=== PATIENT | male | born 1975 | race Caucasian/White ===

== ENCOUNTER → 2016-08-01 | Outpatient (CLI) | payer OTHER ==
[2016-08-01 13:09] LABS: Appearance,Urine Clear (Clear); Bilirubin,Urine Negative (Negative); Glucose,Urine (UA) Negative (Negative); Ketones,Urine Negative (Negative); Leukocyte Esterase,Urine Negative (Negative); Nitrite,Urine Negative (Negative); PH, Urine 5.5 (5.0-8.0); Protein,Urine Trace (Negative); Specific Gravity,Urine 1.027 (1.001-1.035); UA Billing (MACRO vs. MICRO) CHEM; Urobilinogen,Urine <2.0 mg/dL (<2.0)
[2016-08-01 13:15] LABS: CH 30.5; CHCM 36.3; HCT 51.4 % (39.0-53.0); HDW 2.95; HGB 18.2 gm/dL (13.0-17.5); MCH 29.9 pg (25.0-35.0); MCHC 35.3 g/dL (31.0-37.0); MCV 84.6 fL (80.0-100.0); Mean Platelet Volume 7.8; RBC 6.08 m/uL (4.30-5.90); WBC 4.2 k/uL (3.8-10.6)
--- NOTE | 2016-08-01 13:24 | XR ---
EXAMINATION TYPE: XR chest 2V DATE OF EXAM: 08/01/2016 1:14 PM COMPARISON: 10/02/2015 INDICATION: Physical TECHNIQUE: Single frontal view of the chest is obtained. FINDINGS: The heart size is normal. The pulmonary vasculature is normal. The lungs are clear. There is an increased AP diameter of increased retrosternal airspace. Correlate for COPD. IMPRESSION: 1. COPD. 2. No acute pulmonary process.
[2016-08-01 13:34] LABS: ALT 29 U/L (21-72); AST 24 U/L (17-59); Alkaline Phosphatase 65 U/L (38-126); Anion Gap 12 mmol/L; Blood Urea Nitrogen 19 mg/dL (9-20); Calcium 10.2 mg/dL (8.4-10.2); Carbon Dioxide 25 mmol/L (22-30); Chloride 104 mmol/L (98-107); Cholesterol 159 mg/dL (<200); Glucose 97 mg/dL (74-99); HDL Cholesterol 66 mg/dL (40-60); Non-African American GFR(MDRD) >60 (>60 ml/min/1.73 sqM); Potassium 4.4 mmol/L (3.5-5.1); Sodium 141 mmol/L (137-145); Total Bilirubin 1.4 mg/dL (0.2-1.3); Total Protein 7.5 g/dL (6.3-8.2); Triglycerides 62 mg/dL (<150)
[2016-08-01 13:37] LABS: Rheumatoid Factor, Qnt <9 IU/mL (<12)
== END | disposition home or self-care (01) ==
LOC: LABWHC1 12:51
PROVIDERS: ATTEND Internal Medicine
DX: Z00.00 Encounter for general adult medical examination without abnormal findings (principal); J44.9 Chronic obstructive pulmonary disease, unspecified; F31.9 Bipolar disorder, unspecified; M54.5 Low back pain; M79.1 Myalgia
CPT/HCPCS: 36415; 71020; 80053; 80061; 81003; 84439; 84443; 85027; 86038; 86431

== ENCOUNTER → 2017-06-13 | Outpatient (CLI) | payer OTHER ==
--- NOTE | 2017-06-13 16:10 | XR ---
EXAMINATION TYPE: XR shoulder complete LT DATE OF EXAM: 06/13/2017 COMPARISON: NONE HISTORY: 41 year-old male left shoulder pain TECHNIQUE: None FINDINGS: AC joint appears congruent and intact. Subacromial space is preserved. No tendinous or bursal calcifi cations. No acute fracture, subluxation, or dislocation. Visualized left hemithorax is clear. IMPRESSION: No acute osseous abnormality seen.
== END | disposition home or self-care (01) ==
LOC: RADXRMAIN 14:24
PROVIDERS: ATTEND Internal Medicine
DX: M25.512 Pain in left shoulder (principal)

== ENCOUNTER → 2018-02-17 | Outpatient (CLI) | payer MEDICARE ==
[2018-02-17 14:29] LABS: HCT 47.5 % (39.0-53.0); MCH 30.8 pg (25.0-35.0); MCHC 35.8 g/dL (31.0-37.0); MCV 86.2 fL (80.0-100.0); Mean Platelet Volume 8.1; Platelet Count 163 k/uL (150-450); RBC 5.51 m/uL (4.30-5.90); RDW 12.7 % (11.5-15.5); WBC 4.1 k/uL (3.8-10.6)
--- NOTE | 2018-02-17 14:58 | XR ---
EXAMINATION TYPE: XR chest 2V DATE OF EXAM: 02/17/2018 COMPARISON: 08/01/2016 HISTORY: History of COPD and asthma. Annual exam. TECHNIQUE: Frontal and lateral views of the chest are obtained. FINDINGS: There is no focal air space opacity, pleural effusion, or pneumothorax seen. The cardiac silhouette size is within normal limits. The osseous structures are intact. Mild pulmonary hyperinf lation relates to the patient's known history of COPD. Minimal multilevel degenerative changes of the thoracic spine are noted. IMPRESSION: No acute cardiopulmonary process.
[2018-02-17 18:39] LABS: Albumin 4.6 g/dL (3.80-4.90); Albumin/Globulin Ratio 2.42 (1.20-2.10); Anion Gap 5.4 mmol/L (4.00-12.00); Carbon Dioxide 27.6 mmol/L (21.6-31.8); Globulin 1.9 g/dL (2.1-3.7); LDL Cholesterol,Calculated 85.6 mg/dL (0.0-131.0); Potassium 5.3 mmol/L (3.5-5.5); Total Bilirubin 0.9 mg/dL (0.2-1.2); Total Protein 6.5 g/dL (6.2-8.2)
[2018-02-17 18:47] LABS: T4, Free (Free Thyroxine) 1.3 ng/dL (0.80-1.80)
[2018-02-18 06:42] LABS: VLDL Calculation 10.4 mg/dL (5.00-40.00)
== END | disposition home or self-care (01) ==
LOC: LABWHC1 13:34
PROVIDERS: ATTEND Internal Medicine
DX: Z00.01 Encounter for general adult medical examination with abnormal findings (principal); J44.9 Chronic obstructive pulmonary disease, unspecified; K21.0 Gastro-esophageal reflux disease with esophagitis; F31.9 Bipolar disorder, unspecified; E78.2 Mixed hyperlipidemia
CPT/HCPCS: 36415; 71046; 80053; 80061; 84439; 84443; 85027

== ENCOUNTER 2019-09-11 16:23 | Emergency (ER) | payer OTHER, MEDICARE ==
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
[2019-09-11] MEDS ORDERED: KETOROLAC 30 MG/ML 1 ML VIAL IVP STA (17:21)
[2019-09-11] MEDS ORDERED: LIDOCAINE 1% INJ 10MG/ML (20 ML MDV) SQ ONE (17:41)
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
[2019-09-11] MEDS ORDERED: AMOXIC-POT CLAV 875-125MG 1 EACH TAB PO STA (18:47)
== END 2019-09-11 19:52 | disposition home or self-care (01) ==
LOC: EC 16:23
DX: S62.521A Displaced fracture of distal phalanx of right thumb, initial encounter for closed fracture (principal); S61.101A Unspecified open wound of right thumb with damage to nail, initial encounter; S81.811A Laceration without foreign body, right lower leg, initial encounter; S50.811A Abrasion of right forearm, initial encounter; J44.9 Chronic obstructive pulmonary disease, unspecified; Z79.899 Other long term (current) drug therapy; V23.4XXA Motorcycle driver injured in collision with car, pick-up truck or van in traffic accident, initial encounter; Y92.488 Other paved roadways as the place of occurrence of the external cause; Y93.I9 Activity, other involving external motion
CPT/HCPCS: 72170; 73090; 73130; 73590; 71045; 11730; 99285; 96374; J2001; J1885